=== PATIENT | male | born 1970 | race Caucasian/White ===

== ENCOUNTER 2024-06-15 20:51 | Emergency (ER) | payer MEDICAID ==
[~2024-06-15] VITALS: Ht 175.3 cm; Wt 81.0 kg
[2024-06-15 20:57] VITALS: TEMP 98.8
[2024-06-15 22:04] VITALS: BP 132/80; PULSE 80; RESP 15; O2SAT 99
== END 2024-06-15 22:05 | disposition home or self-care (01) ==
LOC: ER 20:52
DX: S80.02XA Contusion of left knee, initial encounter (principal); S00.01XA Abrasion of scalp, initial encounter; V09.9XXA Pedestrian injured in unspecified transport accident, initial encounter; Y93.89 Activity, other specified; Y92.89 Other specified places as the place of occurrence of the external cause; Y99.8 Other external cause status
CPT/HCPCS: 71045; 73560; 99284